=== PATIENT | male | born 1985 | race Two or more races ===

== ENCOUNTER 2020-12-17 00:07 | Emergency (ER) | payer OTHER ==
[2020-12-17] MEDS ORDERED: Ondansetron 4 MG/2 ML SDV ONE (00:18)
[2020-12-17] MEDS ORDERED: Ondansetron 4 MG/2 ML SDV IVPUSH ONE (00:18)
[2020-12-17] MEDS ORDERED: Diphtheria,Pertussis(Acell),Tetanus Vaccine 0.5 ML Syringe IM ONE (00:18)
[2020-12-17] MEDS ORDERED: Lactated Ringers 1,000 ML IV ONE (00:18)
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
[2020-12-17] MEDS ORDERED: Lactated Ringers 1,000 ML IV SCH (00:30)
--- NOTE | 2020-12-17 09:25 | CT ---
CT chest Technique: Multiple axial sections through the chest were obtained. Intravenous contrast was utilized. Reconstructed coronal and sagittal images were obtained. Comparison: No prior chest CT is available. Thoracic aorta shows no aneurysm. Mediastinum and hilar regions show no adenopathy or mass. No axillary adenopathy is seen. No pericardial thickening is identified. Patchy areas of increased density are seen posteriorly within both lung bases. Lungs otherwise are clear. No pleural effusions are seen. No discrete pneumothorax is appreciated. Bone window settings were reviewed which show no acute osseous abnormality. Impression: 1. Increased density within both posterior lung bases. Differential includes atelectasis as well as pneumonia. Please correlate with patient's symptoms. 2. No other acute abnormalities are appreciated. Diagnostic code #3 I agree with preliminary report from [facility], finalized on 12/17/20, 1:54 AM CDT, code 1 CT abdomen and pelvis Technique: Multiple axial sections were obtained from above the dome of the diaphragm inferiorly through the pubic symphysis. Intravenous contrast was utilized. No oral contrast was given. Reconstructed coronal and sagittal images were obtained. Delayed images were also obtained through the abdomen and pelvis. Comparison: No prior abdomen and pelvis imaging is available. Findings: Liver shows no focal abnormality. Spleen appears within normal limits. Adrenal glands show no nodule. Kidneys show symmetric contrast enhancement with no hydronephrosis or mass. Pancreas shows no discrete abnormality. Gallbladder contains no calcified gallstones. Abdominal aorta shows no aneurysm. No retroperitoneal adenopathy or mesenteric abnormalities are seen. Appendix is seen which is normal. No pelvic mass or adenopathy is appreciated. Delayed images show contrast excretion into both ureters and within the bladder. Bone window settings were reviewed which shows no acute osseous finding. Impression: 1. Nothing acute is appreciated on CT study of the abdomen and pelvis. Diagnostic code #1 I agree with preliminary report from [facility], finalized on 12/17/20, 1:55 AM CDT, code 1
--- NOTE | 2020-12-17 09:25 | CT ---
Head CT Technique: Multiple axial sections through the brain were obtained. Intravenous contrast was not utilized. Reconstructed coronal and sagittal images were obtained. Comparison: No prior intracranial imaging is available. Findings: Mucosal thickening is seen within both maxillary sinuses which is most likely chronic. Visualized mastoid sinuses are clear. Ventricles along with basal cisterns and sulci over the convexities are within normal limits. No abnormal parenchymal densities are seen. No evidence of intracranial hemorrhage. No midline shift or mass-effect is appreciated. Bone window settings were reviewed which show no acute calvarial abnormality. Impression: 1. Chronic appearing mucosal thickening within both maxillary sinuses. 2. No acute intracranial abnormality is identified. Diagnostic code #2 I agree with preliminary report from [facility], finalized on 12/17/20, 1:54 AM CDT, code 1
--- NOTE | 2020-12-17 09:25 | CT ---
CT cervical spine Technique: Multiple axial sections were obtained from above C1 inferiorly to the top of T3. Reconstructed coronal and sagittal images were obtained. Comparison: No prior cervical spine imaging is available. Findings: Vertebral body heights and disc spaces are maintained. No bony central or bony neural foraminal stenosis is seen. Sclerotic posterior arch of C2 is seen compatible with bone island. No fracture or subluxation is appreciated. Impression: 1. Bone island as noted above which is incidental. 2. Nothing acute is appreciated on CT study of the cervical spine. Diagnostic code #2 I agree with preliminary report from [facility], finalized on 12/17/20, 1:56 AM CDT, code 1
--- NOTE | 2020-12-17 09:27 | CT ---
CT thoracic spine Technique: Multiple axial sections through the thoracic spine were obtained. Reconstructed coronal and sagittal images were obtained. Comparison: No prior thoracic spine imaging is available. Findings: Vertebral body heights and disc spaces are maintained. No fracture is seen. No subluxation is noted. Increased density is noted within the chest which will be described on chest CT study. Impression: 1. Nothing acute is seen within the thoracic spine. Diagnostic code #2 I agree with preliminary report from [facility], finalized on 12/17/20, 1:58 AM CDT, code 1
--- NOTE | 2020-12-17 09:27 | CT ---
CT lumbar spine Technique: Multiple axial sections through the lumbar spine were obtained. Reconstructed coronal and sagittal images were obtained. Comparison: No prior lumbar spine imaging is available. Findings: Vertebral body heights and disc spaces are maintained. No acute fracture or dislocation is seen. Pedicles are intact. Visualized transverse and spinous processes are intact. Sacroiliac joints are within normal limits. Impression: 1. Nothing acute is seen on CT study of the lumbar spine. Diagnostic code #1 I agree with preliminary report from [facility], finalized on 12/17/20, 1:58 AM CDT, code 1
== END 2020-12-17 07:20 | disposition home or self-care (01) ==
LOC: JD.ED 00:07
DX: S00.83XA Contusion of other part of head, initial encounter (principal); S80.812A Abrasion, left lower leg, initial encounter; V89.2XXA Person injured in unspecified motor-vehicle accident, traffic, initial encounter; Y92.410 Unspecified street and highway as the place of occurrence of the external cause
CPT/HCPCS: 36415; 70450; 71260; 72125; 72128; 72131; 74177; 80053; 80306; 80307; 81001; 82150; 83605; 85025; 85610; 85730; 86850; 86900; 86901; 90471; 90715; 96374; 99285; J2405; J7120; 99283

== ENCOUNTER 2021-03-27 10:06 | Emergency (ER) | payer MEDICAID ==
--- NOTE | 2021-03-27 10:43 | EDM.PDOC ---
ED HPI GENERAL MEDICAL PROBLEM - General Chief Complaint: Back Pain or Injury Stated Complaint: BACK PAIN Time Seen by Provider: 03/27/21 10:33 - History of Present Illness INITIAL COMMENTS - FREE TEXT/NARRATIVE: 35-year-old male presents the emergency room with low back pain. Patient states that started yesterday after lifting a couch he had sudden onset of pain and spasm across his low back worse on the right side compared to the left. If he tries to fully straighten his legs out and move in the wrong direction he gets significant muscle spasm and tightness in his low back. He does not have any nerve like pain extending into his legs. No loss of bowel or bladder control. No abdominal pain nausea vomiting constipation or diarrhea. Lower Back Pain Score (Numeric/FACES): 6 - Related Data Allergies Allergy/AdvReac Type Severity Reaction Status Date / Time No Known Allergies Allergy Verified 03/27/21 10:27 Home Meds: Home Meds Orphenadrine [Norflex] 100 mg PO BID #10 tab 03/27/21 [Rx] Past Medical History - Past Health History Medical/Surgical History: Denies Medical/Surgical History ED ROS GENERAL - Review of Systems Review Of Systems: See Below Constitutional: Reports: No Symptoms Respiratory: Reports: No Symptoms Cardiovascular: Reports: No Symptoms Endocrine: Reports: No Symptoms GI/Abdominal: Reports: No Symptoms : Reports: No Symptoms Musculoskeletal: Reports: Back Pain Neurological: Reports: No Symptoms ED EXAM, GENERAL - Physical Exam Exam: See Below Exam Limited By: No Limitations General Appearance: Alert, No Apparent Distress Head: Atraumatic, Normocephalic Neck: Normal Inspection, Supple, Non-Tender, Full Range of Motion. No: Lymphadenopathy (L), Lymphadenopathy (R) Respiratory/Chest: No Respiratory Distress, Lungs Clear, Normal Breath Sounds Cardiovascular: Regular Rate, Rhythm, No Edema, No Murmur GI/Abdominal: Normal Bowel Sounds, Soft, Non-Tender Back Exam: Normal Inspection. No: Vertebral Tenderness (No significant bony discomfort with palpation he seems to have a paraspinous muscle spasm right much more than the left.) Extremities: Other (Straight leg raises show only muscle tightness in his back) Neurological: Alert, Oriented, Normal Cognition Course - Vital Signs Last Recorded V/S: Last Vital Signs Temp 36.2 C 03/27/21 10:20 Pulse 66 03/27/21 10:20 Resp 18 03/27/21 10:20 BP 151/90 H 03/27/21 10:20 Pulse Ox 100 03/27/21 10:20 - Orders/Labs/Meds Meds: Medications Discontinued Medications Generic Name Dose Route Start Last Admin Trade Name Tosha PRN Reason Stop Dose Admin Ketorolac Tromethamine 30 mg 03/27/21 10:52 03/27/21 11:07 Ketorolac 30 Mg/Ml Sdv IM 03/27/21 10:53 30 mg ONETIME ONE Administration Orphenadrine Citrate 100 mg 03/27/21 10:52 03/27/21 11:05 Orphenadrine 100 Mg Tab.Er PO 03/27/21 10:53 100 mg ONETIME ONE Administration - Re-Assessments/Exams Free Text/Narrative Re-Assessment/Exam: 03/27/21 12:12 L-spine x-rays show loss of normal lordotic curvature probably due to muscle spasm no acute fracture or subluxation noted. Patient has noticed some improvement after getting 30 mg of IM Toradol and 100 mg of p.o. Norflex. Will send a prescription for Norflex and he will use ibuprofen with this. Departure - Departure Time of Disposition: 12:13 Disposition: Home, Self-Care 01 Clinical Impression: Lumbar strain - Discharge Information Referrals: PCP,None [Primary Care Provider] - Forms: ED Department Discharge, ED Return to Work/School Form Additional Instructions: Return to the emergency room with any questions problems or worsening symptoms. Follow-up in the hospital clinic in 3 days if not significantly better. [phone] I have sent a prescription for Norflex, this is a muscle relaxant take twice daily to the [facility] up by [address] they are only open till [address] drive or return to work within 12 hours of using this medication. Take ibuprofen up to 800 mg 3 times daily with food. Sepsis Event Note (ED) - Focused Exam Vital Signs: Vital Signs Temp Pulse Resp BP Pulse Ox 03/27/21 10:20 36.2 C 66 18 151/90 H 100
[2021-03-27] MEDS ORDERED: Ketorolac 30 MG/ML SDV IM ONE (10:52)
[2021-03-27] MEDS ORDERED: Orphenadrine 100 MG Tab.ER PO ONE (10:52)
--- NOTE | 2021-03-27 11:27 | CR ---
Lumbar spine: AP and lateral views of the lumbar spine were obtained. Comparison: Prior lumbar spine CT study of 12/17/20. Vertebral body heights and disc spaces are maintained. Pedicles are intact. Visualized transverse and spinous processes are intact. Visualized sacroiliac joints are within normal limits. No fracture or subluxation is seen. Impression: 1. Nothing acute is appreciated on two-view lumbar spine study. Diagnostic code #1
== END 2021-03-27 12:28 | disposition home or self-care (01) ==
LOC: JD.ED 10:06
DX: S39.012A Strain of muscle, fascia and tendon of lower back, initial encounter (principal); X50.0XXA Overexertion from strenuous movement or load, initial encounter
CPT/HCPCS: 72100; 96372; 99283; A9270; J1885